=== PATIENT | male | born 1985 | race Caucasian/White ===

== ENCOUNTER 2016-06-04 21:03 | Emergency (ER) | payer OTHER ==
[~2016-06-04] VITALS: Wt 90.0 kg
[2016-06-04] MEDS ORDERED: KETOROLAC 30 MG INJ IM STA (22:30)
--- NOTE | 2016-06-04 22:37 | ERD ---
ER Documentation Chief Complaint Date/Time DATE: 06/04/16 TIME: 22:31 Chief Complaint L ANKLE PAIN AND TOE PAIN FOR 2 WKS . NON TRAUMATIC HPI The patient is a 31-year-old male with no significant past medical or surgical history here with great toe pain of his left foot for one week. He denies any injury, accident, trauma, or fall. He reports that it is exquisitely painful and he is unable to wear shoes. At times, he is unable to even covered with a sock or a light sheet. He also reports some localized redness to his great toe. He denies drinking alcohol, eating shellfish, eating organ meats, eating cheeses. ROS All systems reviewed and are negative except as per history of present illness. Medications Home Meds Active Scripts Tramadol HCl (Tramadol HCl) 50 Mg Tablet, 50 MG PO Q4 Y for PAIN, #9 TAB Prov:ALLEN COLLINS, INDUSTRIAL RELATIONS DIRECTOR 06/04/16 Colchicine (Colchicine) 0.6 Mg Capsule, 1.2 MG PO ONCE, #3 CAP Prov:ALLEN COLLINS [employer] RELATIONS DIRECTOR 06/04/16 PMhx/Soc Medical and Surgical Hx: pt denies Medical Hx, pt denies Surgical Hx History of Surgery: No Anesthesia Reaction: No Hx Neurological Disorder: No Hx Respiratory Disorders: No Hx Cardiac Disorders: No Hx Psychiatric Problems: No Hx Miscellaneous Medical Probl: No Hx Alcohol Use: No Hx Substance Use: No Hx Tobacco Use: No Smoking Status: Never smoker Physical Exam Vitals Vital Signs Date Time Temp Pulse Resp B/P Pulse Ox O2 Delivery O2 Flow Rate FiO2 06/04/16 23:09 98.5 88 18 153/79 98 Room Air 06/04/16 21:10 98.5 84 20 162/84 98 Physical Exam INITIAL VITAL SIGNS: Reviewed by me GENERAL: Alert. Well developed and well nourished. No respiratory distress. HEAD: Normocephalic, atraumatic. EYES: EOMI. No conjunctival injection ENT: Oral mucosa is moist. NECK: Supple. No masses. Full range of motion. Trachea midline RESPIRATORY: No tachypnea. Lungs clear to auscultation bilaterally. CV: Regular rate and rhythm. No murmurs, rubs, or gallops EXTREMITIES: + Severe tenderness to palpation of the left great toe knuckle. + ROM painful at great toe knuckle. ROM intact. +Moderate redness. +Mild swelling. SKIN: Warm and dry. No diaphoresis. NEUROLOGIC: Alert. Results 24 hrs Current Medications Medications (Trade) Dose Ordered Sig/Dee Dee Route PRN Reason Start Time Stop Time Status Last Admin Dose Admin Ketorolac Tromethamine (Toradol) 30 mg ONCE STAT IM 06/04/16 22:30 06/04/16 22:31 DC 06/04/16 22:51 Procedures/MDM Nursing Notes Reviewed Previous Medical Records requested via [facility] [employer]. EMERGENCY DEPARTMENT COURSE / MEDICAL DECISION MAKING: The patient comes to the ED secondary to left great toe pain 1 week. Differential diagnosis upon initial evaluation includes but is not limited to: Septic joint, arthritis, fracture, dislocation, tendon injury, nerve injury, gout, cellulitis, and others. Given that the patient denies any recent injury, accident, trauma, or fall, I have low suspicion at this time for fracture, dislocation, tendon injury, vascular injury, or nerve injury. His history of present illness and physical exam are most consistent with gout. I have low suspicion for septic joint as the area was not hot to touch, had only mild redness, and mild swelling. There was no evidence of cellulitis. The patient was treated with Toradol 30 mg IM with good relief. Final impression: Gout Based on patient's history of present illness and physical examination the decision was made to discharge. The patient was re-evaluated after ED treatment and stabilizing measures, and symptoms have improved. There is no evidence of life threatening injuries or illnesses at this time. On re-examination, patient resting in no distress, stable vital signs, reports feeling better and safe for discharge with outpatient follow up with PMD in 1-2 days. Patient given return precautions. Patient's blood pressure was elevated but appears stable without evidence of hypertensive emergency, end organ damage, chest pain or shortness of breath. The patient was counseled about the risks of untreated hypertension and urged to pursue outpatient monitoring and therapy in 2-3 days with their primary care physician. Prescriptions Colchicine Indomethacin Departure Diagnosis: Primary Impression: Gout attack Gout site: toe Gout etiology: idiopathic Laterality: left Qualified Code : M10.072 - Acute idiopathic gout involving toe of left foot Condition: Stable ALLEN COLLINS NP Jun 04, 2016 22:37
[2016-06-04] MEDS ORDERED: COLC0.6C PO (22:40)
[2016-06-04] MEDS ORDERED: TRAM50TA2 PO (22:41)
[2016-06-04 23:09] VITALS: BP 153/79; PULSE 88; RESP 18; TEMP 98.5
== END 2016-06-04 23:10 | disposition home or self-care (01) ==
LOC: FTE 21:03
DX: M10.072 Idiopathic gout, left ankle and foot (principal)
CPT/HCPCS: 96372; 99284; J1885